=== PATIENT | male | born 1990 ===

== ENCOUNTER 2018-11-16 11:26 | Emergency (ER) | payer SELFPAY ==
[2018-11-16 11:31] VITALS: BP 121/78; PULSE 80; RESP 22; TEMP 98.2; O2SAT 99
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
== END 2018-11-16 12:40 | disposition home or self-care (01) ==
LOC: C.ER 11:26
DX: M43.6 Torticollis (principal); M54.2 Cervicalgia
CPT/HCPCS: 96372; 99284; J1885